=== PATIENT | female | born 1995 | race Caucasian/White ===

== ENCOUNTER 2019-08-23 13:56 | Emergency (ER) | payer OTHER ==
[~2019-08-23] VITALS: Ht 160 cm; Wt 68.9 kg
--- NOTE | 2019-08-23 14:20 | NUR ---
PT CAME INTO THE ED C/O CHEST CONGESTION FOR 3 WKS, ON ANTIBIOTIC. "I FELT SHARP PAIN ON THE CHEST". -SOB,-[place]. PT AAOX4, VSS, BREATHING EVEN AND UNLABROED ON ROOM AIR. PT CONNECTED THE MONITOR.
[2019-08-23] MEDS ORDERED: KETOROLAC TROMETHAMINE INJ 30 MG/ML VIAL ONE (14:48)
--- NOTE | 2019-08-23 14:50 | NUR ---
XRAY AT BEDSIDE
[2019-08-23] MEDS: IV NS 0.9% 1,000 ML BAG IV ONE (15:04)
[2019-08-23] MEDS: KETOROLAC TROMETHAMINE INJ 30 MG/ML VIAL IV ONE (15:04)
--- NOTE | 2019-08-23 16:19 | NUR ---
Patient discharged to home in stable condition. Written and verbal after care instructions given. Patient verbalizes understanding of instruction.IV removed. Catheter intact and site benign. Pressure and 4x4 applied to site. No bleeding noted.
[2019-08-23 16:20] VITALS: BP 127/83
== END 2019-08-23 16:22 | disposition home or self-care (01) ==
LOC: ER 13:56
DX: J20.9 Acute bronchitis, unspecified (principal); J05.0 Acute obstructive laryngitis [croup]
CPT/HCPCS: 71045; 87804 ×2; 96374; 99284; J1885; J7030 ×2